=== PATIENT | female | born 1985 | race Caucasian/White ===

== ENCOUNTER → 2016-06-06 | Outpatient (CLI) | payer BC ==
[2016-06-09 02:29] LABS: CHLAMYDIA TRACH RNA*** DETECTED (NOT DETECTED); GC (NEIS GONORRHOEAE)RNA** NOT DETECTED (NOT DETECTED)
== END | disposition home or self-care (01) ==
LOC: C.LABSPEC 14:10
PROVIDERS: ATTEND Obstetrics & Gynecology
DX: N89.8 Other specified noninflammatory disorders of vagina (principal)

== ENCOUNTER → 2016-06-19 | Outpatient (CLI) | payer BC | END | disposition home or self-care (01) | LOC: C.LABSPEC 10:51 | PROVIDERS: ATTEND Obstetrics & Gynecology | DX: L29.8 Other pruritus (principal) ==

== ENCOUNTER → 2016-07-20 | Outpatient (CLI) | payer BC | END | disposition home or self-care (01) | LOC: C.LABSPEC 17:30 | PROVIDERS: ATTEND Physician Assistant | DX: N89.8 Other specified noninflammatory disorders of vagina (principal); B37.3 Candidiasis of vulva and vagina ==

== ENCOUNTER → 2016-08-02 | Outpatient (CLI) | payer BC ==
[2016-08-07 01:20] LABS: CHLAMYDIA TRACH RNA*** DETECTED (NOT DETECTED); GC (NEIS GONORRHOEAE)RNA** NOT DETECTED (NOT DETECTED); TRICHOMONAS VAGINALIS RNA** NOT DETECTED (NOT DETECTED)
== END | disposition home or self-care (01) ==
LOC: C.LABSPEC 15:52
PROVIDERS: ATTEND Obstetrics & Gynecology
DX: N76.0 Acute vaginitis (principal); A74.9 Chlamydial infection, unspecified

== ENCOUNTER → 2016-11-12 | Outpatient (CLI) | payer BC ==
[2016-11-14 15:38] LABS: CHLAMYDIA TRACH RNA*** NOT DETECTED (NOT DETECTED); GC (NEIS GONORRHOEAE)RNA** NOT DETECTED (NOT DETECTED)
== END | disposition home or self-care (01) ==
LOC: C.LABSPEC 17:17
PROVIDERS: ATTEND Obstetrics & Gynecology
DX: A74.9 Chlamydial infection, unspecified (principal)